=== PATIENT | male | born 1995 | race Caucasian/White ===

== ENCOUNTER 2019-12-05 22:44 | Emergency (ER) | payer OTHER ==
[~2019-12-05] VITALS: Ht 177.8 cm; Wt 54.4 kg
--- NOTE | 2019-12-05 23:05 | NUR ---
admitted to er rm 4a ambulatory c/o abd. pain. dr altamirano seen & evaluated pt.
[2019-12-05] MEDS ORDERED: LIDOCAINE VISCUS 2% 15 ML UDC MM ONE (23:15)
[2019-12-05] MEDS ORDERED: MAG HYDROX/AL HYDROX/SIMETH 30 ML LIQUID UDC PO ONE (23:15)
[2019-12-05] MEDS ORDERED: MAG HYDROX/AL HYDROX/SIMETH 30 ML LIQUID UDC ONE (23:20)
[2019-12-05] MEDS ORDERED: LIDOCAINE VISCUS 2% 15 ML UDC ONE (23:20)
--- NOTE | 2019-12-05 23:50 | NUR ---
Patient discharged to home in stable condition. Written and verbal after care instructions given. Patient verbalizes understanding of instructions. Stressed follow up or return to ER for worsening s/s.
[2019-12-05 23:57] VITALS: BP 110/60
== END 2019-12-06 00:02 | disposition home or self-care (01) ==
LOC: ER 22:46
DX: K29.70 Gastritis, unspecified, without bleeding (principal); Z80.0 Family history of malignant neoplasm of digestive organs
CPT/HCPCS: A4663